=== PATIENT | male | born 1955 | race Caucasian/White ===

== ENCOUNTER 2017-04-09 06:29 | Day surgery (SDC) | payer BC ==
[~2017-04-09] VITALS: Ht 170.2 cm; Wt 72.6 kg
[~2017-04-09 06:29] MED LIST: LEVOTHYROXIN25 MC1 PO; LORTAB5 PO; ZYRTEC10 M5 PO
[2017-04-09 09:14] VITALS: BP 109/66
== END 2017-04-09 09:20 | disposition home or self-care (01) | DRG 951 ==
LOC: ENDO 06:29
PROVIDERS: ATTEND Surgery
PROC: 0DJD8ZZ Inspection of Lower Intestinal Tract, Via Natural or Artificial Opening Endoscopic (ICD-10-PCS; principal; 2017-04-09)
DX: Z12.11 Encounter for screening for malignant neoplasm of colon (principal); E03.9 Hypothyroidism, unspecified; Z85.820 Personal history of malignant melanoma of skin

== ENCOUNTER 2021-03-12 09:32 | Emergency (ER) | payer OTHER, BC ==
[~2021-03-12] VITALS: Ht 170.2 cm; Wt 67.0 kg
[2021-03-12 11:31] VITALS: BP 109/75
== END 2021-03-12 11:42 | disposition home or self-care (01) | DRG 563 ==
LOC: ED 09:32
DX: M23.92 Unspecified internal derangement of left knee (principal); W01.198A Fall on same level from slipping, tripping and stumbling with subsequent striking against other object, initial encounter; Y92.89 Other specified places as the place of occurrence of the external cause; Y99.0 Civilian activity done for income or pay

== ENCOUNTER 2022-11-23 10:13 | Emergency (ER) | payer MEDICARE ==
[2022-11-23] VITALS (9 sets, daily range): BP systolic 108–158; BP diastolic 65–111
[~2022-11-23] VITALS: Ht 170.2 cm; Wt 77.1 kg
[2022-11-23 11:05] LABS: BASO% 0.4 % (0-3); EOS% 2.9 % (0-8); HEMATOCRIT 42.7 % (39.0-50.0); IMMATURE GRANULOCYTES 0.5 % (0.0-5.0); LYMPH% 33.5 % (15-41); MEAN CELL VOLUME 85.1 fL CALC (80.0-100.0); MEAN CORPUSCULAR HGB 27.9 pG CALC (26.0-32.0); MEAN CORPUSCULAR HGB CONC 32.8 g/dL CAL (32.0-36.0); MONO% 7.2 % (2-13); NEUT# 4.65 thou/uL (1.82-7.42); NEUT% 55.5 % (42-76); RED BLOOD COUNT 5.02 mill/uL (4.70-6.10); RED CELL DISTRI WIDTH 12.9 % (11.5-15.5)
[2022-11-23 11:14] LABS: ALBUMIN 4.7 g/dL (3.2-5.0); ALKALINE PHOSPHATASE 54 u/l (38-126); ANION GAP 15 (6-22 (CALC)); BILIRUBIN, TOTAL 0.8 mg/dL (0.2-1.3); BUN 19 mg/dL (8-23); BUN/CREATININE RATIO 23 (12-20 (CALC)); CARBON DIOXIDE 23 mmol/l (22-30); CHLORIDE 105 mmol/l (95-108); CREATININE 0.8 mg/dL (0.7-1.3); GFR FOR AFR.AMER. > 60 ML/MIN (>=60 (CALC)); GFR OTHER RACES > 60 ML/MIN (>=60 (CALC)); LIPASE 48 u/l (23-300); POTASSIUM 3.8 mmol/l (3.5-5.1); SGOT/AST 37 u/l (19-48); SODIUM 140 mmol/l (137-146); TOTAL PROTEIN 8.3 g/dL (6.3-8.2)
[2022-11-23] MEDS ORDERED: ZYRTEC10 M3 PO (11:37)
[2022-11-23 12:44] LABS: URINE BILIRUBIN - DIPSTICK NEGATIVE (NEGATIVE); URINE BLOOD DIPSTICK MODERATE (NEGATIVE); URINE COLOR YELLOW; URINE GLUCOSE - DIPSTICK NEGATIVE (NEGATIVE); URINE KETONE NEGATIVE (NEGATIVE); URINE LEUK ESTERASE NEGATIVE (NEGATIVE); URINE PH 6.5 (4.5-8.0); URINE PROTEIN - DIPSTICK NEGATIVE (NEG-TRACE); URINE UROBILINOGEN - DIPSTICK 0.2 E.U./dL (0.2)
[2022-11-23 12:50] LABS: URINE NITRITE - DIPSTICK NEGATIVE (Negative)
[2022-11-23 12:52] LABS: URINE WBC 0-2 WBC/hpf (0-5)
[2022-11-23] MEDS ORDERED: ZOFRAN4 MG/TAB PO (13:11)
[2022-11-23] MEDS ORDERED: TAMSULOSIN0.4 MG PO (13:11)
[2022-11-23] MEDS ORDERED: TRAMADOL HYDROC50 M1 PO (13:11)
[2022-11-23] MEDS ORDERED: TORADOL PO (13:11)
== END 2022-11-23 13:40 | disposition home or self-care (01) ==
LOC: ED 10:13
PROVIDERS: Family Medicine
DX: N21.0 Calculus in bladder (principal); R11.2 Nausea with vomiting, unspecified